=== PATIENT | male | born 1990 ===

== ENCOUNTER 2018-11-30 17:07 | Emergency (ER) | payer BC ==
[2018-11-30 17:32] VITALS: RESP 18; TEMP 97.5; O2SAT 98
[2018-11-30 18:09] LABS: APPEARANCE,URINE Clear; BILIRUBIN,URINE NEGATIVE (NEGATIVE); COLOR,URINE Yellow; GLUCOSE, URINE (UA) NEGATIVE (NEGATIVE); KETONES,URINE NEGATIVE (NEGATIVE); LEUKOCYTE ESTERASE ,URINE NEGATIVE (NEGATIVE); NITRATE,URINE NEGATIVE (NEGATIVE); OCCULT BLOOD,URINE NEGATIVE (NEG-TRACE); PH,URINE 7.5
[2018-11-30 18:40] LABS: BACTERIA TRACE (< 1+); CRYSTALS NEGATIVE (0-3 AVE/HPF); EPITHELIAL CELLS NEGATIVE (SQUAMOUS); RBC,URINE NEGATIVE (0-3AV/HPF); WBC,URINE 0-2 (0-5AV/HPF)
[2018-11-30 18:53] VITALS: BP 154/98; PULSE 70
== END 2018-11-30 18:50 | disposition home or self-care (01) ==
LOC: ED 17:07
DX: A60.01 Herpesviral infection of penis (principal)
CPT/HCPCS: 81001; 99282